=== PATIENT | male | born 1975 | race Caucasian/White ===

== ENCOUNTER 2017-06-22 08:07 | Day surgery (SDC) | payer MEDICAID ==
[2017-06-15 11:06] LABS: BASOPHILS # (AUTO) 0.1 X10'3 (0-0.2); BASOPHILS % (AUTO) 0.6 % (0-1); EOSINOPHILS # (AUTO) 0.4 X10'3 (0-0.9); EOSINOPHILS % (AUTO) 3.1 % (0-6); LYMPHOCYTES # (AUTO) 2.9 X10'3 (1.1-4.8); LYMPHOCYTES % (AUTO) 25.7 % (21-51); MEAN CORPUSCULAR HEMOGLOBIN 29.5 PG (27.0-31.0); MEAN CORPUSCULAR HGB CONC 33.9 % (33.0-36.5); MEAN CORPUSCULAR VOLUME 87.1 FL (78-98); MEAN PLATELET VOLUME 9.3 FL (7.4-10.4); MONOCYTES # (AUTO) 0.8 X10'3 (0-0.9); MONOCYTES % (AUTO) 6.7 % (2-12); NEUTROPHILS # (AUTO) 7.2 X10'3 (1.8-7.7); NEUTROPHILS % (AUTO) 63.9 % (42-75); PRE OP HEMATOCRIT 48.3 % (42.0-52.0); PRE OP HEMOGLOBIN 16.4 g/dL (14.0-17.9); PRE OP PLATELET COUNT 262 X10'3 (140-440); RED BLOOD COUNT 5.55 X10'6 (4.70-6.10); RED CELL DISTRIBUTION WIDTH 13.2 % (11.5-14.5)
[2017-06-15 11:13] LABS: CLARITY,URINE CLEAR (Clear); COLOR,URINE STRAW (Yellow); GLUCOSE, URINE NEGATIVE (Neg); KETONES,URINE NEGATIVE (Neg); LEUKOCYTE ESTERASE ,URINE NEGATIVE (Neg); NITRITES, URINE NEGATIVE (Neg); OCCULT BLOOD,URINE NEGATIVE (Neg); PROTEIN,URINE NEGATIVE (Neg); UA COLLECTION TYPE NON-SPECIFIED; UROBILINOGEN,URINE 0.2 E.U/dL (0.2-1.0)
[2017-06-15 11:24] LABS: ALBUMIN 4.5 G/DL (3.4-5.0); ALBUMIN/GLOBULIN RATIO 1.2 (1.1-1.5); ALKALINE PHOSPHATASE 60 IU/L (46-116); BLOOD UREA NITROGEN 12 MG/DL (7-18); BUN/CREATININE RATIO 15.2 (5.4-32.0); CALCIUM 9.6 MG/DL (8.5-10.1); CHLORIDE 102 MMOL/L (99-107); CREATININE 0.79 MG/DL (0.60-1.10); PRE OP ALT 59 U/L (30-65); PRE OP ANION GAP 8 (8-16); PRE OP AST 24 U/L (10-37); PRE OP BILIRUB, TOTAL 0.5 MG/DL (0.0-1.0); PRE OP GLUCOSE 137 MG/DL (70-104); PRE OP SODIUM 140 MMOL/L (135-145); TOTAL CARBON DIOXIDE 30.1 MMOL/L (24-32); TOTAL PROTEIN 8.2 G/DL (6.4-8.2); eGFR > 90 ML/MIN
[2017-06-22] VITALS (7 sets, daily range): BP systolic 102–142; BP diastolic 62–90
[~2017-06-22] VITALS: Ht 167.6 cm; Wt 74.0 kg
[~2017-06-22 08:07] MED LIST: ATOR40TA PO; CYCL-1 PO; DICY10CA88 PO; DULO60CA64 PO; FENO134C PO; GAB TOP; HYDR-565 PO; IBU TOP; MELO-102 PO; MELOXICAM TOP; METF850T2 PO; cefazolin 1gm/NS 100mL 100 ML IV ONE; famotidine 20mg tablet PO ONE; ringers solution, lacted 1,000 ML IV SCH
[2017-06-22] MEDS ORDERED: LIDOcaine 1% 30ml vial IJ ONE (09:30)
[2017-06-22] MEDS ORDERED: BUPIVAcaine/PF 2.5 mg/ml (0.25%) 30ml vial IJ ONE (09:30)
[2017-06-22] MEDS ORDERED: LIDOcaine 1% 30ml vial 30 ML ONE (09:45)
[2017-06-22] MEDS ORDERED: midazolam 2 mg/2 ml injection ONE ×2 (10:04)
[2017-06-22] MEDS ORDERED: fentaNYL/PF 50MCG/1 ML 2ML syringe ONE (10:04)
[2017-06-22] MEDS ORDERED: propofol inj 20 ML IV ONE (10:08)
[2017-06-22] MEDS ORDERED: ringers solution, lacted 1,000 ML IV SCH (10:21)
[2017-06-22] MEDS ORDERED: BUPIVAcaine/PF 2.5 mg/ml (0.25%) 30ml vial ONE (10:24)
[2017-06-22] MEDS ORDERED: meperidine/PF 25mg/ml syringe IV PRN ×3 (10:25)
[2017-06-22] MEDS ORDERED: ondansetron/PF 4mg/2ml inj IV PRN (10:25)
[2017-06-22] MEDS ORDERED: proCHLORperazine 10 MG/2 ml inj IV PRN (10:25)
== END 2017-06-22 11:30 | disposition home or self-care (01) ==
LOC: PAS 08:07
PROVIDERS: ATTEND Surgery
DX: L72.3 Sebaceous cyst (principal); I10 Essential (primary) hypertension; E11.9 Type 2 diabetes mellitus without complications; M19.90 Unspecified osteoarthritis, unspecified site; F17.210 Nicotine dependence, cigarettes, uncomplicated; G89.29 Other chronic pain; F32.9 Major depressive disorder, single episode, unspecified; Z79.84 Long term (current) use of oral hypoglycemic drugs; Z88.6 Allergy status to analgesic agent; Z88.8 Allergy status to other drugs, medicaments and biological substances; Z79.899 Other long term (current) drug therapy
CPT/HCPCS: 11403; 36415; 80053; 81003; 82948; 85025; 93005; A6449; J0690; J2250; J2704; J3010; J3490; J7120; A7000

== ENCOUNTER 2019-04-17 05:38 | Inpatient (IN) | payer MEDICAID ==
[2019-04-14 15:56] LABS: BASOPHILS # (AUTO) 0.1 X10'3 (0-0.2); BASOPHILS % (AUTO) 0.9 % (0-1); EOSINOPHILS # (AUTO) 0.2 X10'3 (0-0.9); EOSINOPHILS % (AUTO) 1.7 % (0-6); LYMPHOCYTES # (AUTO) 3.1 X10'3 (1.1-4.8); LYMPHOCYTES % (AUTO) 26.2 % (21-51); MEAN CORPUSCULAR HGB CONC 34.5 g/dL (33.0-36.5); MEAN PLATELET VOLUME 9.1 FL (7.4-10.4); MONOCYTES # (AUTO) 0.7 X10'3 (0-0.9); MONOCYTES % (AUTO) 5.6 % (2-12); NEUTROPHILS # (AUTO) 7.9 X10'3 (1.8-7.7); NEUTROPHILS % (AUTO) 65.6 % (42-75); PRE OP HEMATOCRIT 48.3 % (42.0-52.0); PRE OP HEMOGLOBIN 16.6 g/dL (14.0-17.9); PRE OP PLATELET COUNT 298 X10'3 (140-440); RED BLOOD COUNT 5.55 X10'6 (4.70-6.10); RED CELL DISTRIBUTION WIDTH 13.5 % (11.5-14.5)
[2019-04-14 16:03] LABS: HEMOGLOBIN A1C 6.3 % (4.5-6.2)
[2019-04-14 16:11] LABS: PRE OP PROTIME 10.1 SECONDS (9.0-12.0)
[2019-04-14 16:14] LABS: ALBUMIN 4.4 G/DL (3.4-5.0); ALBUMIN/GLOBULIN RATIO 1.1 (1.1-1.5); ALKALINE PHOSPHATASE 65 IU/L (46-116); BLOOD UREA NITROGEN 18 MG/DL (7-18); BUN/CREATININE RATIO 22.5 (5.4-32.0); CALCIUM 9.5 MG/DL (8.5-10.1); CHLORIDE 105 MMOL/L (99-107); PRE OP ALT 30 U/L (30-65); PRE OP ANION GAP 10 (8-16); PRE OP AST 12 U/L (10-37); PRE OP BILIRUB, TOTAL 0.5 MG/DL (0.0-1.0); PRE OP GLUCOSE 109 MG/DL (70-104); PRE OP POTASSIUM 3.6 MMOL/L (3.4-5.1); PRE OP SODIUM 141 MMOL/L (135-145); TOTAL CARBON DIOXIDE 25.6 MMOL/L (24-32); TOTAL PROTEIN 8.3 G/DL (6.4-8.2); eGFR > 90 ML/MIN
[~2019-04-17] VITALS: Ht 167.6 cm; Wt 66.2 kg
[2019-04-17] VITALS (22 sets, daily range): BP systolic 105–156; BP diastolic 68–93
[~2019-04-17 05:38] MED LIST changes: -CYCL-1 PO; -DICY10CA88 PO; -DULO60CA64 PO; +DULO60CA65 PO; -GAB TOP; +HYDR-4353 PO; -HYDR-565 PO; -IBU TOP; -MELOXICAM TOP; +METF-437 PO; -METF850T2 PO; +albuterol 2.5 MG/3 ML nebule NEB ONE; -cefazolin 1gm/NS 100mL 100 ML IV ONE; +cefazolin/dext.iso 2gm/50ml 50 ML IV ONE
[2019-04-17] MEDS ORDERED: bacitracin 15gm ointment TP ONE (06:53)
[2019-04-17] MEDS ORDERED: BUPIVAcaine/PF 2.5 mg/ml (0.25%) 30ml vial ONE (06:53)
[2019-04-17] MEDS ORDERED: midazolam 2 mg/2 ml injection ONE (07:21)
[2019-04-17] MEDS ORDERED: fentaNYL /PF 50mcg/ml 5ml ampule ONE (07:21)
[2019-04-17] MEDS ORDERED: ringers solution, lacted 1,000 ML IV SCH (09:02)
[2019-04-17] MEDS ORDERED: morphine 4 MG/ML inj SYRINge IV PRN ×3 (09:05→11:30)
[2019-04-17] MEDS ORDERED: meperidine/PF 25mg/ml syringe IV PRN ×2 (09:05)
[2019-04-17] MEDS ORDERED: ondansetron/PF 4mg/2ml inj IV PRN ×2 (09:05→11:25)
[2019-04-17] MEDS ORDERED: proCHLORperazine 10 MG/2 ml inj IV PRN ×2 (09:05→11:20)
--- NOTE | 2019-04-17 10:40 | NUR ---
Received from OR via bed, accompanied by Anesthesiologist dr harris and report given by Anesthesiolgist. patient a&ox4, c/o pain in neck see emar, v/s wnl, csm intact, accucheck 163, 20g piv rue, anterior dressing to neck with vac tube with minimal output red blood, dressing cdi. neck brace on and intact. scd on.
[2019-04-17] MEDS ORDERED: rocuronium 10mg/ml inj IV ONE (10:46)
[2019-04-17] MEDS ORDERED: propofol inj 20 ML IV ONE ×4 (10:46→10:47)
[2019-04-17] MEDS ORDERED: LIDOcaine 2% (20mg/ml) 5ml vial ONE (10:46)
[2019-04-17] MEDS ORDERED: neostigmine methylsulfate 1 MG/ML 10ml vial ONE (10:46)
[2019-04-17] MEDS ORDERED: glycopyrrolate 0.2mg/ml inj ONE (10:46)
[2019-04-17] MEDS ORDERED: ondansetron/PF 4mg/2ml inj ONE (10:46)
[2019-04-17] MEDS ORDERED: dexamethasone sod phosphate 4mg/ml inj. ONE (10:46)
[2019-04-17] MEDS: meperidine/PF 25mg/ml syringe IV PRN ×4 (10:53→11:15)
[2019-04-17] MEDS ORDERED: HYDROcodone/acetaminophen 10/325mg tab PO PRN ×3 (11:10→11:25)
[2019-04-17] MEDS ORDERED: CADD PCA waste documentation MC SCH (11:20)
[2019-04-17] MEDS ORDERED: temazepam 15mg capsule PO PRN (11:20)
[2019-04-17] MEDS: HYDROmorphone/NS 1 mg/ml CADD 50 ML IV SCH ×7 (11:22→23:30)
[2019-04-17] MEDS ORDERED: cyclobenzaprine 10mg tablet PO PRN ×2 (11:25→20:30)
[2019-04-17] MEDS ORDERED: [UNRECOGNIZED DRUG - OTHER] RC PRN (11:25)
[2019-04-17] MEDS ORDERED: magnesium hydroxide 30ml (MOM) UD suspension PO PRN (11:25)
[2019-04-17] MEDS ORDERED: bisacodyl 10mg suppository rectal RC PRN (11:25)
[2019-04-17] MEDS ORDERED: simethicone 80mg chew tab PO PRN (11:25)
[2019-04-17] MEDS ORDERED: diphenhydrAMINE 50 mg/ml inj IV PRN (11:25)
[2019-04-17] MEDS ORDERED: metoclopramide 5 mg/ml inj IV PRN (11:25)
[2019-04-17] MEDS ORDERED: albuterol 2.5 MG/3 ML nebule NEB PRN (11:25)
[2019-04-17] MEDS ORDERED: acetaminophen 325mg tablet PO PRN (11:25)
[2019-04-17] MEDS ORDERED: dextrose ORAL solution 15 GM/59 ML bottle PO PRN ×2 (11:50)
[2019-04-17] MEDS ORDERED: insulin Lispro (HumaLOG) vial - multi-dose SQ SCH (11:50)
[2019-04-17] MEDS ORDERED: MESSAGE TO PHARMACY PO ONE (11:50)
[2019-04-17] MEDS ORDERED: glucagon, human recombinant 1mg kit SUBCUT PRN (11:50)
[2019-04-17] MEDS ORDERED: dextrose 50%-water 50ml dispensing syringe IV PRN ×2 (11:50)
--- NOTE | 2019-04-17 13:10 | NUR ---
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 neck brace on and intact. scd on. PATIENT TAKEN TO 4008 WITH ALL BELONGINGS AND HOOKED UP TO MONITORS IN ROOM AND REPORT GIVEN TO RN WHO HAS TAKEN OVER PATIENT CARE.
[2019-04-17] MEDS: cefazolin/dext.iso 2gm/50ml 50 ML IV SCH (16:24)
[2019-04-17] MEDS: potassium cl 20mEq in 1/2 NS 1,000 ML IV SCH ×2 (16:24→19:20)
--- NOTE | 2019-04-17 18:40 | NUR ---
Report to Jackelyn OCONNOR
--- NOTE | 2019-04-17 18:57 | NUR ---
Patient in room [facility] 4008. I have received report from antoinette Orozco and had the opportunity to ask questions and assume patient care.
[2019-04-17] MEDS: docusate sod 100mg capsule PO SCH (20:44)
[2019-04-17] MEDS ORDERED: insulin glargine (Lantus) pen - multi-dose SQ SCH (21:00)
[2019-04-17] MEDS ORDERED: atorvastatin 20mg tablet PO SCH (21:00)
[2019-04-18] MEDS: cefazolin/dext.iso 2gm/50ml 50 ML IV SCH ×2 (00:06→07:47)
[2019-04-18] MEDS: HYDROmorphone/NS 1 mg/ml CADD 50 ML IV SCH ×3 (01:00→05:00)
[2019-04-18 05:49] LABS: BASOPHILS # (AUTO) 0.1 X10'3 (0-0.2); BASOPHILS % (AUTO) 0.5 % (0-1); EOSINOPHILS % (AUTO) 0.3 % (0-6); HEMATOCRIT 41.1 % (42.0-52.0); LYMPHOCYTES % (AUTO) 18.6 % (21-51); MEAN CORPUSCULAR HEMOGLOBIN 29.5 PG (27.0-31.0); MEAN CORPUSCULAR VOLUME 86.8 FL (78-98); MEAN PLATELET VOLUME 9.1 FL (7.4-10.4); MONOCYTES # (AUTO) 1.5 X10'3 (0-0.9); MONOCYTES % (AUTO) 9.5 % (2-12); NEUTROPHILS # (AUTO) 11.5 X10'3 (1.8-7.7); NEUTROPHILS % (AUTO) 71.1 % (42-75); PLATELET COUNT 277 X10'3 (140-440); RED BLOOD COUNT 4.74 X10'6 (4.70-6.10); WHITE BLOOD COUNT 16.2 X10'3 (4.5-11.0)
[2019-04-18 05:55] LABS: ANION GAP 8 (8-16); CHLORIDE 101 MMOL/L (99-107); POTASSIUM 3.9 MMOL/L (3.5-5.1); SODIUM 139 MMOL/L (135-145); TOTAL CARBON DIOXIDE 29.8 MMOL/L (24-32)
[2019-04-18] MEDS ORDERED: HYDROmorphone 1 mg/ml syringe IV PRN (05:55)
[2019-04-18 06:00] VITALS: BP 104/74
[2019-04-18] MEDS: potassium cl 20mEq in 1/2 NS 1,000 ML IV SCH (06:17)
--- NOTE | 2019-04-18 06:37 | NUR ---
Problems reprioritized. Patient report given, questions answered & plan of care reviewed with ELVIN FAN.
[2019-04-18] MEDS ORDERED: pantoprazole 40mg Tablet.DR PO SCH (07:30)
[2019-04-18] MEDS ORDERED: LYR75C PO (07:40)
[2019-04-18] MEDS: docusate sod 100mg capsule PO SCH (07:47)
[2019-04-18] MEDS ORDERED: duloxetine 30mg CAPSULE.DR PO SCH (08:00)
[2019-04-18] MEDS ORDERED: pregabalin 75mg capsule PO SCH (08:00)
[2019-04-18 10:00] VITALS: BP 125/77
== END 2019-04-18 10:30 | disposition home or self-care (01) | DRG 321 ==
LOC: PAS IN 05:38 → EDSTATUS 07:30 → ORTHO 4S 13:19
PROVIDERS: ADMIT Orthopaedic Surgery; ATTEND Orthopaedic Surgery
PROC: 0RB30ZZ Excision of Cervical Vertebral Disc, Open Approach (ICD-10-PCS; 2019-04-17)
PROC: 0RG10A0 Fusion of Cervical Vertebral Joint with Interbody Fusion Device, Anterior Approach, Anterior Column, Open Approach (ICD-10-PCS; principal; 2019-04-17 07:15)
DX: M47.22 Other spondylosis with radiculopathy, cervical region (principal); E11.42 Type 2 diabetes mellitus with diabetic polyneuropathy; M48.02 Spinal stenosis, cervical region; I10 Essential (primary) hypertension; Z79.899 Other long term (current) drug therapy; F32.9 Major depressive disorder, single episode, unspecified; K21.9 Gastro-esophageal reflux disease without esophagitis; E78.5 Hyperlipidemia, unspecified
CPT/HCPCS: 36415; 72040; 76000; 80051; 80053; 82948; 83036; 85025; 85610; 85730; 86885; 86900; 86901; 86920; 87081; 93005; A4215; A4618; A6258; A6402; A6449; A7000; C1713; C1729; C1758; G0378; J0690; J1100; J1170; J1815; J2001; J2175; J2250; J2405; J2704; J2710; J3010; J3480; J3490; J7050; J7120

== ENCOUNTER 2023-08-03 05:37 | Emergency (ER) | payer MEDICAID ==
[~2023-08-03] VITALS: Ht 167.6 cm; Wt 80.6 kg
[~2023-08-03 05:37] MED LIST changes: -DULO60CA65 PO; -FENO134C PO; +FENO134C21 PO; +LYR75C PO; -albuterol 2.5 MG/3 ML nebule NEB ONE; -cefazolin/dext.iso 2gm/50ml 50 ML IV ONE; -famotidine 20mg tablet PO ONE; -ringers solution, lacted 1,000 ML IV SCH
[2023-08-03 05:58] VITALS: TEMP 98.3
[2023-08-03] MEDS ORDERED: AMOX-580 PO (06:36)
[2023-08-03] MEDS ORDERED: IBUP-1984 PO (06:36)
[2023-08-03] MEDS ORDERED: OXYC-658 PO (06:36)
[2023-08-03 07:17] VITALS: BP 144/101; PULSE 97; RESP 17; O2SAT 97
[2023-08-03] MEDS: clindamycin 150mg capsule PO STA (07:35)
== END 2023-08-03 07:38 | disposition home or self-care (01) ==
LOC: ER 05:38
DX: K04.7 Periapical abscess without sinus (principal); E11.9 Type 2 diabetes mellitus without complications; F12.10 Cannabis abuse, uncomplicated; Z88.8 Allergy status to other drugs, medicaments and biological substances; Z79.899 Other long term (current) drug therapy
CPT/HCPCS: 99283